=== PATIENT | female | born 1985 | race Caucasian/White ===

== ENCOUNTER 2018-09-30 00:30 | Emergency (ER) | payer MEDICAID ==
[~2018-09-30] VITALS: Ht 172.7 cm; Wt 72.7 kg
[2018-09-30 00:39] VITALS: Ht 172.7 cm; Wt 72.7 kg
[2018-09-30 01:27] LABS: BASOPHILS 0.2 % (0-2); EOSINOPHILS 0.9 % (0-7); HEMOGLOBIN 16.8 g/dL (12-16); IMMATURE GRANULOCYTES 0.1 % (0-5); LYMPHOCYTES 24.2 % (15-50); MCH 31.1 pg (26.0-34.0); MCHC 34.3 g/dL (31.0-37.0); MCV 90.6 fL (80.0-100.0); MEAN PLATELET VOLUME 10.6 fL (7.4-10.4); NEUTROPHILS 63.6 % (40-80); PLATELET COUNT 293 10x3/uL (130-400); RBC 5.41 10x6/uL (4.00-5.40); RDW 12.7 % (11.5-14.5)
[2018-09-30 01:32] LABS: APPEARANCE HAZY (CLEAR); BILIRUBIN NEGATIVE (NEGATIVE); COLOR YELLOW (YELLOW); GLUCOSE NEGATIVE (NEGATIVE); KETONE NEGATIVE (NEGATIVE); NITRITE NEGATIVE (NEGATIVE); PROTEIN 1+ mg/dL (NEGATIVE); SPECIFIC GRAVITY 1.025 (1.005-1.020); UROBILINOGEN NORMAL (NORMAL)
[2018-09-30 01:34] LABS: BACTERIA FEW /hpf (NONE SEEN); EPITHELIAL CELLS 0-5 /hpf (0-5); RED CELLS - URINE 0-5 /hpf (0-5)
[2018-09-30 01:43] LABS: ALBUMIN 3.8 g/dL (3.4-5.0); ALKALINE PHOSPHATASE 60 U/L (46-116); ALT (SGPT) 25 U/L (10-68); AMYLASE - SERUM 170 U/L (25-115); BILIRUBIN - TOTAL 0.21 mg/dL (0.2-1.3); CALC OSMOLALITY 279 mosm/kg (275-300); CALCIUM 9.5 mg/dL (8.5-10.1); CARBON DIOXIDE 22.9 mmol/L (21.0-32.0); CHLORIDE - SERUM 104 mmol/L (98-107); CREATININE - SERUM 0.9 mg/dL (0.6-1.3); GLUCOSE 107 mg/dL (74-106); LIPASE 503 U/L (73-393); POTASSIUM - SERUM 4.3 mmol/L (3.5-5.1); PROTEIN - SERUM 8.3 g/dL (6.4-8.2); SODIUM 139 mmol/L (136-145); UREA NITROGEN 19 mg/dL (7-18); eGFR NON AFRICAN AMERICAN 77 mL/min (90-120)
[2018-09-30 02:16] LABS: HCG URINE NEGATIVE (NEGATIVE)
[2018-09-30] MEDS ORDERED: MACROBID100 MG PO (03:07)
[2018-09-30 03:16] VITALS: BP 127/77
== END 2018-09-30 03:17 | disposition home or self-care (01) ==
LOC: D.ER 00:30
PROVIDERS: Family Medicine
DX: Z20.2 Contact with and (suspected) exposure to infections with a predominantly sexual mode of transmission (principal); R10.9 Unspecified abdominal pain; R74.8 Abnormal levels of other serum enzymes; N39.0 Urinary tract infection, site not specified; F17.200 Nicotine dependence, unspecified, uncomplicated

== ENCOUNTER 2021-02-10 23:36 | Emergency (ER) | payer MEDICAID ==
[~2021-02-10] VITALS: Ht 172.7 cm; Wt 63.6 kg
[~2021-02-10 23:36] MED LIST: MACROBID100 MG PO
[2021-02-10 23:40] VITALS: BP 156/89; Ht 172.7 cm; Wt 63.6 kg
[2021-02-10] MEDS ORDERED: CLEOCIN HCL300 MG PO (23:49)
[2021-02-10] MEDS ORDERED: VOLTAREN75 MG PO (23:49)
== END 2021-02-11 00:15 | disposition home or self-care (01) ==
LOC: D.ER 23:36
DX: K04.7 Periapical abscess without sinus (principal); K08.89 Other specified disorders of teeth and supporting structures